=== PATIENT | female | born 1985 ===

== ENCOUNTER → 2024-07-28 | Outpatient (CLI) | payer OTHER ==
--- NOTE | 2024-07-29 14:54 | US ---
EXAMINATION TYPE: US pelvic complete DATE OF EXAM: 07/28/2024 COMPARISON: NONE CLINICAL INDICATION: Female, 38 years old with history of N92.1 EXCESSIVE AND FREQUENT MENSTRUATION W ITH; IUD x 6 years. Per patient, unable to find strings, check IUD. TECHNIQUE: Transabdominal (TA). Transabdominal grayscale sonographic images of the pelvis were acquired. Doppler imaging: Not performed. FINDINGS: Date of LMP: Unknown due to IUD, EXAM MEASUREMENTS: Uterus: 7.2 x 4.6 x 4.2 cm Endometrial Stripe: 0.2 cm Right Ovary: 2.4 x 1.7 x 1.5 cm Left Ovary: 2.6 x 1.4 x 1.3 cm 1. Uterus: Anteverted wnl 2. Endometrium: IUD seen within endometrium 3. Right Ovary: wnl 4. Left Ovary: wnl 5. Bilateral Adnexa: wnl 6. Posterior cul-de-sac: no free fluid IMPRESSION: IUD identified within the endometrium. Otherwise unremarkable study. [facility], , 07/29/2024 2:52 PM
== END | disposition home or self-care (01) ==
LOC: RADUSWWP 15:18
DX: N92.1 Excessive and frequent menstruation with irregular cycle (principal); T83.32XA Displacement of intrauterine contraceptive device, initial encounter
CPT/HCPCS: 76856